=== PATIENT | female | born 1990 | race Two or more races ===

== ENCOUNTER 2018-06-20 23:45 | Inpatient (IN) | payer OTHER ==
[~2018-06-20] VITALS: Ht 147.3 cm; Wt 59.4 kg
== END 2018-06-23 13:04 | disposition home or self-care (01) | DRG 768 ==
LOC: LDR 23:45 → OB/GYN 23:45
PROVIDERS: ADMIT Obstetrics & Gynecology Maternal & Fetal Medicine
PROC: 4A1HXCZ Monitoring of Products of Conception, Cardiac Rate, External Approach (ICD-10-PCS; 2018-06-20)
PROC: 10E0XZZ Delivery of Products of Conception, External Approach (ICD-10-PCS; principal; 2018-06-21)
PROC: 0DQR0ZZ Repair Anal Sphincter, Open Approach (ICD-10-PCS; 2018-06-21)
PROC: 0W8NXZZ Division of Female Perineum, External Approach (ICD-10-PCS; 2018-06-21)
PROC: 4A033R1 Measurement of Arterial Saturation, Peripheral, Percutaneous Approach (ICD-10-PCS; 2018-06-21)
DX: O70.21 Third degree perineal laceration during delivery, IIIa (principal); Z37.0 Single live birth; Z3A.39 39 weeks gestation of pregnancy